=== PATIENT | male | born 1990 | race Caucasian/White ===

== ENCOUNTER 2020-02-23 09:08 | Emergency (ER) | payer MEDICAID ==
--- NOTE | 2020-02-23 10:43 | EDM.PDOC ---
ED HPI GENERAL MEDICAL PROBLEM - General Chief Complaint: Back Pain or Injury Stated Complaint: LOWER BACK AND LEG PAIN/TROUBLE WALKING Time Seen by Provider: 02/23/20 09:45 Source of Information: Reports: Patient History Limitations: Reports: No Limitations - History of Present Illness INITIAL COMMENTS - FREE TEXT/NARRATIVE: The patient presents with low back pain and leg numbness and weakness. He says he has a history of low back pain. He fell asleep in his recliner 3 days all night and when he woke up he had low back pain and he had numbness and weakness to both legs. He also had pain down both legs. His right leg has less numbness and weakness but his left leg still has numbness and weakness. He cannot stand because he has pain to the left leg, numbness and weakness. He has no bowel or bladder problems. He does say he has numbness to his groin and he has problems getting an erection. Onset: Sudden Duration: Day(s): (3) Location: Reports: Back, Lower Extremity, Left, Lower Extremity, Right Quality: Reports: Sharp Severity: Severe Improves with: Reports: None Worsens with: Reports: None Associated Symptoms: Denies: Chest Pain, Cough, Fever/Chills, Headaches, Nausea/Vomiting, Shortness of Breath Treatments LINE CLOSER: Reports: Other (see below) Other Treatments LINE CLOSER: elevation Bilateral Leg Pain Score (Numeric/FACES): 8 - Related Data Allergies Allergy/AdvReac Type Severity Reaction Status Date / Time No Known Allergies Allergy Verified 02/23/20 09:52 Home Meds: Home Meds . [No Known Home Meds] 02/23/20 [History] Past Medical History - Past Health History Medical/Surgical History: Denies Medical/Surgical History Neurological History: Reports: Neuropathy, Peripheral Social & Family History - Tobacco Use Smoking Status *Q: Current Every Day Smoker Years of Tobacco use: 16 Packs/Tins Daily: 0.2 Second Hand Smoke Exposure: No - Caffeine Use Caffeine Use: Reports: Energy Drinks, Soda, Tea - Recreational Drug Use Recreational Drug Use: Yes Recreational Drug Type: Reports: Marijuana/Hashish Recreational Drug Use Frequency: Daily ED ROS GENERAL - Review of Systems Review Of Systems: See Below Constitutional: Reports: No Symptoms HEENT: Reports: No Symptoms Respiratory: Reports: No Symptoms Cardiovascular: Reports: No Symptoms Endocrine: Reports: No Symptoms GI/Abdominal: Reports: No Symptoms : Reports: No Symptoms Musculoskeletal: Reports: Back Pain Neurological: Reports: Numbness (both legs), Weakness (both legs) ED EXAM,LOWER BACK PAIN/INJURY - Physical Exam Exam: See Below Exam Limited By: No Limitations General Appearance: Alert, No Apparent Distress Ears: Normal External Exam Nose: Normal Inspection Head: Atraumatic, Normocephalic Neck: Normal Inspection Respiratory/Chest: No Respiratory Distress, Lungs Clear, Normal Breath Sounds Cardiovascular: Regular Rate, Rhythm, No Edema, No Murmur GI/Abdominal: Soft, No Organomegaly, No Mass, Tender (Mild lower abdominal tenderness) Back Exam: Other (Pain upon palpation to the lower back) Neurological: Alert, Oriented x 3, Other (Gross numbess to both legs but more to the left leg. Moderate to severe weakness to the left leg.) Course - Vital Signs Last Recorded V/S: Last Vital Signs Temp 97.8 F 02/23/20 09:41 Pulse 60 02/23/20 09:41 Resp 18 02/23/20 09:41 BP 114/77 02/23/20 09:41 Pulse Ox 98 02/23/20 09:41 - Orders/Labs/Meds Orders: Active Orders 24 hr Category Date Time Status Peripheral IV Care [RC] . DIRECTED Care 02/23/20 13:12 Active Sodium Chloride 0.9% [Saline Flush] Med 02/23/20 13:12 Active 10 ml FLUSH ASDIRECTED PRN Peripheral IV Insertion Adult [OM.PC] Routine Oth 02/23/20 13:12 Ordered Medication Orders Sodium Chloride (Saline Flush) 10 ml FLUSH ASDIRECTED PRN PRN Reason: Keep Vein Open Last Admin: 02/23/20 13:30 Dose: 10 ml Documented by: FELICITY Meds: Medications Generic Name Dose Route Start Last Admin Trade Name Freq PRN Reason Stop Dose Admin Sodium Chloride 10 ml 02/23/20 13:12 02/23/20 13:30 Saline Flush FLUSH 10 ml ASDIRECTED PRN Administration Keep Vein Open Discontinued Medications Generic Name Dose Route Start Last Admin Trade Name Freq PRN Reason Stop Dose Admin Gadobenate Dimeglumine 20 ml 02/23/20 16:00 02/23/20 16:02 Multihance IVPUSH 02/23/20 16:01 20 ml ONETIME ONE Administration Sodium Chloride 10 ml 02/23/20 16:00 02/23/20 16:02 Saline Flush FLUSH 02/23/20 16:01 10 ml ONETIME ONE Administration - Re-Assessments/Exams Free Text/Narrative Re-Assessment/Exam: 02/23/20 10:43 I have ordered an MRI of his lumbar spine. 02/23/20 13:04 The MRI of his lumbar spine shows no abnormality identified on MRI study of the lumbar spine. I called [facility] [address] in [place] and talked with Dr Philippe the neurologist manager compensation and he recommended a MRI of the thoracic spine. I ordered that and it was normal. I called him back and I did more of an exam. He had some slight numbness to below the umbilicus with light touch. He had a positive babinski to the left. He had no 2 point discrimination to the left leg and that only started on the lower leg on the right side. I called Dr Philippe back and he said not all the exam findings are making sense. I agreed. He said he could see him in the clinic or in their ER today and it is hard to make that determination with the exam findings. I said I will have him follow up in the clinic and I will get him a walker and I have him seeing PT at [facility] tomorrow at 7am. Departure - Departure Time of Disposition: 17:00 Disposition: Home, Self-Care 01 Condition: Good Clinical Impression: Left leg numbness, Left leg weakness Low back pain Qualifiers: Chronicity: acute Back pain laterality: bilateral Sciatica presence: without sciatica Qualified Code(s): M54.5 - Low back pain - Discharge Information *PRESCRIPTION DRUG MONITORING PROGRAM REVIEWED*: Not Applicable *COPY OF PRESCRIPTION DRUG MONITORING REPORT IN PATIENT WILLIAM: Not Applicable Referrals: PCP,None [Primary Care Provider] - Jonathan Philippe MD [Ordering Only Provider] - 1 Week Nel Mckeon NP [Nurse Practitioner] - 1 Week Forms: ED Department Discharge, ED Return to Work/School Form Additional Instructions: Use the walker to get around. Take motrin or tylenol for any pain. Follow up with physical therapy tomorrow at 7am. The entrance for [facility] is at the other end of the building. Follow up with the neurologist Dr Philippe at [facility] in [place]. Call to make an appointment. Follow up with Nel Mckeon in our clinic on at 12:30. Come at 12 to register. Please return if you are worse. Sepsis Event Note (ED) - Evaluation Sepsis Screening Result: No Definite Risk - Focused Exam Vital Signs: Vital Signs Temp Pulse Resp BP Pulse Ox 02/23/20 09:41 97.8 F 60 18 114/77 98 - My Orders Last 24 Hours: My Active Orders 02/23/20 13:12 Peripheral IV Care [RC] . DIRECTED Sodium Chloride 0.9% [Saline Flush] 10 ml FLUSH ASDIRECTED PRN Peripheral IV Insertion Adult [OM.PC] Routine - Assessment/Plan Last 24 Hours: My Active Orders 02/23/20 13:12 Peripheral IV Care [RC] . DIRECTED Sodium Chloride 0.9% [Saline Flush] 10 ml FLUSH ASDIRECTED PRN Peripheral IV Insertion Adult [OM.PC] Routine
--- NOTE | 2020-02-23 12:37 | MR ---
MRI lumbar spine Technique: T1 and T2 axial images were obtained the top of the L1-2 disc through the L5-S1 discs. T1, T2 and fat suppressed inversion recovery sagittal images were obtained. Findings: Vertebral body heights and disc spaces are maintained. Posterior discs are preserved. No central canal stenosis or neural foraminal stenosis is seen. Conus medullaris and cauda equina shows no abnormal signal or mass. Impression: 1. No abnormality is identified on MRI study of the lumbar spine. Diagnostic code #1 This report was dictated in MDT
[2020-02-23] MEDS ORDERED: Sodium Chloride 0.9% 10 ML Syringe FLUSH PRN (13:12)
[2020-02-23] MEDS ORDERED: Sodium Chloride 0.9% 10 ML Syringe FLUSH ONE (16:00)
[2020-02-23] MEDS ORDERED: Gadobenate Dimeglumine 529 MG/ML 20 ML SDV IVPUSH ONE (16:00)
--- NOTE | 2020-02-23 16:37 | MR ---
MRI thoracic spine Technique: T1 and T2-weighted axial images were obtained contiguously from above the T7-8 disc inferiorly through the T10-11 disc. T2-weighted axial images at each disc interspace was also obtained. T1, T2 and fat suppressed inversion recovery sagittal images were obtained. Findings: Vertebral body heights and disc spaces are maintained. Posterior discs are preserved. No disc herniation is seen. No central canal stenosis or neural foraminal stenosis is seen. Thoracic cord shows no abnormal signal or mass. Impression: 1. No abnormality is appreciated on MRI study of the thoracic spine. Diagnostic code #1 This report was dictated in MDT
== END 2020-02-23 17:20 | disposition home or self-care (01) ==
LOC: JD.ED 09:08
DX: M54.5 Low back pain (principal); M62.81 Muscle weakness (generalized); R20.0 Anesthesia of skin; R10.30 Lower abdominal pain, unspecified; F17.210 Nicotine dependence, cigarettes, uncomplicated
CPT/HCPCS: 72148; 72157; 99284; A9577; 99283

== ENCOUNTER 2020-08-28 08:45 | Emergency (ER) | payer MEDICAID ==
[2020-08-28] MEDS ORDERED: Ondansetron 4 MG/2 ML SDV IVPUSH ONE (09:05)
[2020-08-28] MEDS ORDERED: Sodium Chloride 0.9% 1,000 ML IV STA (09:05)
[2020-08-28] MEDS ORDERED: Sodium Chloride 0.9% 10 ML Syringe FLUSH PRN (09:05)
[2020-08-28] MEDS ORDERED: HYDROmorphone 1 MG/ML Syringe IVPUSH ONE (09:06)
--- NOTE | 2020-08-28 09:10 | EDM.PDOC ---
ED HPI GENERAL MEDICAL PROBLEM - General Chief Complaint: Gastrointestinal Problem Stated Complaint: VOMITING BLOOD Time Seen by Provider: 08/28/20 08:58 Source of Information: Reports: Patient History Limitations: Reports: No Limitations - History of Present Illness INITIAL COMMENTS - FREE TEXT/NARRATIVE: The patient presents with abdominal pain, right flank pain, nausea and vomiting. He says for a few weeks this has been going on. This morning it started up again and it is worse. He said there is pain in his right flank. He also has generalized abdominal pain with severe nausea and vomiting. He has no diarrhea. He has no fever, chills, cough, congestion, runny nose, chest pain or shortness of breath. He has no dysuria. He still his appendix and gallbladder. He has no other medical problems. Onset: Gradual Duration: Week(s): Location: Reports: Abdomen, Back Quality: Reports: Sharp Severity: Severe Improves with: Reports: None Worsens with: Reports: None Associated Symptoms: Reports: Nausea/Vomiting. Denies: Chest Pain, Cough, Fever/Chills, Headaches, Shortness of Breath Chest Pain Score (Numeric/FACES): 10 - Related Data Allergies Allergy/AdvReac Type Severity Reaction Status Date / Time diphenhydramine Allergy Cannot Verified 08/28/20 09:03 [From Benadryl] Remember methylphenidate Allergy Cannot Verified 08/28/20 09:03 [From Ritalin] Remember Home Meds: Home Meds Hydrocodone/Acetaminophen [Hydrocodone-Acetamin 5-325 mg] 1 - 2 each PO Q6HR PRN #10 tablet 08/28/20 [Rx] Ondansetron [Zofran ODT] 4 mg PO Q6H PRN #20 tab.dis 08/28/20 [Rx] Pantoprazole Sodium [Protonix] 40 mg PO DAILY #14 tablet. 08/28/20 [Rx] Past Medical History - Past Health History Medical/Surgical History: Denies Medical/Surgical History Neurological History: Reports: Neuropathy, Peripheral Social & Family History - Caffeine Use Caffeine Use: Reports: Energy Drinks, Soda, Tea ED ROS GENERAL - Review of Systems Review Of Systems: See Below Constitutional: Reports: No Symptoms HEENT: Reports: No Symptoms Respiratory: Reports: No Symptoms Cardiovascular: Reports: No Symptoms Endocrine: Reports: No Symptoms GI/Abdominal: Reports: Abdominal Pain, Nausea, Vomiting. Denies: Diarrhea : Reports: Flank Pain (right) Musculoskeletal: Reports: Back Pain ED EXAM, GI/ABD - Physical Exam Exam: See Below Exam Limited By: No Limitations General Appearance: Alert, Mild Distress Ears: Normal External Exam Nose: Normal Inspection Head: Atraumatic, Normocephalic Neck: Normal Inspection Respiratory/Chest: No Respiratory Distress, Lungs Clear, Normal Breath Sounds Cardiovascular: Regular Rate, Rhythm, No Edema, No Murmur GI/Abdominal Exam: Soft, No Organomegaly, No Mass, Tender (Generalized severe tenderness) Back Exam: CVA Tenderness (R) Course - Vital Signs Last Recorded V/S: Last Vital Signs Temp 96.9 F 08/28/20 09:04 Pulse 92 08/28/20 09:04 Resp 16 08/28/20 09:04 BP 154/88 H 08/28/20 09:04 Pulse Ox 100 08/28/20 09:04 - Orders/Labs/Meds Orders: Active Orders 24 hr Category Date Time Status Peripheral IV Care [RC] . DIRECTED Care 08/28/20 09:05 Active Sodium Chloride 0.9% [Saline Flush] Med 08/28/20 09:05 Active 10 ml FLUSH ASDIRECTED PRN ED Antiemetic Medication Reflex [OM.PC] Stat Oth 08/28/20 09:05 Ordered Peripheral IV Insertion Adult [OM.PC] Stat Oth 08/28/20 09:05 Ordered Medication Orders Sodium Chloride (Saline Flush) 10 ml FLUSH ASDIRECTED PRN PRN Reason: Keep Vein Open Last Admin: 08/28/20 09:17 Dose: 10 ml Documented by: REENA Labs: Laboratory Tests 08/28/20 08/28/20 Range/Units 09:20 09:20 WBC 11.74 H (4.23-9.07) K/mm3 RBC 6.01 (4.63-6.08) M/mm3 Hgb 17.1 (13.7-17.5) gm/dl Hct 50.3 (40.1-51.0) % MCV 83.7 (79.0-92.2) fl MCH 28.5 (25.7-32.2) pg MCHC 34.0 (32.2-35.5) g/dl RDW Std Deviation 40.2 (35.1-43.9) fL Plt Count 306 (163-337) K/mm3 MPV 9.0 L (9.4-12.3) fl Neut % (Auto) 70.1 H (34.0-67.9) % Lymph % (Auto) 19.5 L (21.8-53.1) % Sutton % (Auto) 7.3 (5.3-12.2) % Eos % (Auto) 2.7 (0.8-7.0) Baso % (Auto) 0.2 (0.1-1.2) % Neut # (Auto) 8.23 H (1.78-5.38) K/mm3 Lymph # (Auto) 2.29 (1.32-3.57) K/mm3 Sutton # (Auto) 0.86 H (0.30-0.82) K/mm3 Eos # (Auto) 0.32 (0.04-0.54) K/mm3 Baso # (Auto) 0.02 (0.01-0.08) K/mm3 Manual Slide Review Abnormal smear Sodium 144 (136-145) mEq/L Potassium 3.9 (3.5-5.1) mEq/L Chloride 108 H (98-107) mEq/L Carbon Dioxide 26 (21-32) mEq/L Anion Gap 13.9 (5-15) BUN 15 (7-18) mg/dL Creatinine 1.1 (0.7-1.3) mg/dL Est Cr Clr Drug Dosing 114.17 mL/min Estimated GFR (MDRD) > 60 (>60) mL/min BUN/Creatinine Ratio 13.6 L (14-18) Glucose 117 H (74-106) mg/dL Calcium 8.9 (8.5-10.1) mg/dL Total Bilirubin 0.3 (0.2-1.0) mg/dL AST 12 L (15-37) U/L ALT 26 (16-63) U/L Alkaline Phosphatase 75 (46-116) U/L Total Protein 7.5 (6.4-8.2) g/dl Albumin 4.1 (3.4-5.0) g/dl Globulin 3.4 gm/dL Albumin/Globulin Ratio 1.2 (1-2) Lipase 170 (73-393) U/L Meds: Medications Generic Name Dose Route Start Last Admin Trade Name Teodoro PRN Reason Stop Dose Admin Sodium Chloride 10 ml 08/28/20 09:05 08/28/20 09:17 Saline Flush FLUSH 10 ml ASDIRECTED PRN Administration Keep Vein Open Discontinued Medications Generic Name Dose Route Start Last Admin Trade Name Teodoro PRN Reason Stop Dose Admin Hydromorphone HCl 1 mg 08/28/20 09:06 08/28/20 09:17 Dilaudid IVPUSH 08/28/20 09:07 1 mg ONETIME ONE Administration Sodium Chloride 1,000 mls @ 1,000 mls/hr 08/28/20 09:05 08/28/20 09:17 Normal Saline IV 08/28/20 10:04 1,000 mls/hr .BOLUS STA Administration Ondansetron HCl 4 mg 08/28/20 09:05 08/28/20 09:17 Zofran IVPUSH 08/28/20 09:06 4 mg ONETIME ONE Administration - Re-Assessments/Exams Free Text/Narrative Re-Assessment/Exam: 08/28/20 09:09 I ordered an IV NS 1L bolus, zofran 4mg IV, dilaudid 1mg IV, labs, UA and a CT of his abdomen and pelvis with IV and oral contrast. 08/28/20 10:37 The patient was very rude to my nurses when they were getting an IV and they gave him the meds and pulled the IV out because he did not want it in. He feels better now. His WBC was slightly elevated at 11.74. His CMP looks good. His lipase was normal. The CT of his abdomen and pelvis shows distal visualized esophagus shows wall thickening. Wall thickening also appears to be present within a portion of the stomach. Findings suspicious for possible gastritis and reflux esophagitis. Please correlate with the patient's symptoms. No renal calculi, urethral dilatation or ureteral stone is seen. No other acute abnormality is identified. He feels much better. I will get him on protonix, zofran and something for pain. Departure - Departure Time of Disposition: 10:45 Disposition: Home, Self-Care 01 Condition: Good Clinical Impression: Gastritis Qualifiers: Gastritis type: unspecified gastritis Chronicity: acute Gastritis bleeding: without bleeding Qualified Code(s): K29.00 - Acute gastritis without bleeding Reflux esophagitis Qualifiers: Esophagitis bleeding: without hemorrhage Qualified Code(s): K21.00 - Gastro- esophageal reflux disease with esophagitis, without bleeding - Discharge Information *PRESCRIPTION DRUG MONITORING PROGRAM REVIEWED*: No *COPY OF PRESCRIPTION DRUG MONITORING REPORT IN PATIENT WILLIAM: No Prescriptions: Hydrocodone/Acetaminophen [Hydrocodone-Acetamin 5-325 mg] 1 - 2 each PO Q6HR PRN #10 tablet PRN Reason: Pain Pantoprazole Sodium [Protonix] 40 mg PO DAILY #14 tablet. Ondansetron [Zofran ODT] 4 mg PO Q6H PRN #20 tab.dis PRN Reason: Nausea\vomiting Referrals: PCP,None [Primary Care Provider] - Aiden Jones PA-C [Physician Family Program Specialist] - 2 Weeks Forms: ED Department Discharge Additional Instructions: Take the protonix daily for 2 weeks. Take the zofran as needed for nausea and vomiting. Take the hydrocodone as needed for pain. Try to avoid spicy foods. Please return if you are worse. Follow up with Aiden Jones in the clinic within 2 weeks. Sepsis Event Note (ED) - Focused Exam Vital Signs: Vital Signs Temp Pulse Resp BP Pulse Ox 08/28/20 09:04 96.9 F 92 16 154/88 H 100 - My Orders Last 24 Hours: My Active Orders 08/28/20 09:05 Peripheral IV Care [RC] . DIRECTED Sodium Chloride 0.9% [Saline Flush] 10 ml FLUSH ASDIRECTED PRN ED Antiemetic Medication Reflex [OM.PC] Stat Peripheral IV Insertion Adult [OM.PC] Stat - Assessment/Plan Last 24 Hours: My Active Orders 08/28/20 09:05 Peripheral IV Care [RC] . DIRECTED Sodium Chloride 0.9% [Saline Flush] 10 ml FLUSH ASDIRECTED PRN ED Antiemetic Medication Reflex [OM.PC] Stat Peripheral IV Insertion Adult [OM.PC] Stat
--- NOTE | 2020-08-28 10:11 | CT ---
CT abdomen and pelvis Technique: Multiple axial sections were obtained from above the dome of the diaphragm inferiorly through the pubic symphysis. Intravenous and oral contrast was not utilized. Study has been performed as a ureteral stone protocol. Reconstructed coronal and sagittal images were obtained. Findings: Kidneys show no abnormal calcifications. No ureteral dilatation or ureteral stone is seen. Visualized lung bases show nothing acute. Noncontrast appearance of the liver and spleen show no discrete abnormality. There is wall thickening within the distal esophagus suspicious for gastroesophageal reflux. Adrenal glands show no nodule. Pancreas shows no discrete abnormality. Aorta shows no aneurysm. Stomach wall is slightly thickened possibly due to gastritis. No retroperitoneal adenopathy or mesenteric abnormalities are seen. Appendix is seen which is normal in size. No pelvic mass or adenopathy is appreciated. Bowel gas pattern appears within normal limits. Bone window settings were reviewed. No acute osseous abnormality is identified. Impression: 1. Distal visualized esophagus shows wall thickening. Wall thickening also appears to be present within a portion of the stomach. Findings are suspicious for possible gastritis and reflux esophagitis. Please correlate with the patient's symptoms. 2. No renal calculi, ureteral dilatation or ureteral stone is seen. 3. No other acute abnormality is identified. Diagnostic code #3
== END 2020-08-28 10:58 | disposition home or self-care (01) ==
LOC: JD.ED 08:45
DX: K29.00 Acute gastritis without bleeding (principal); K21.00 Gastro-esophageal reflux disease with esophagitis, without bleeding; G62.9 Polyneuropathy, unspecified; Z79.899 Other long term (current) drug therapy; Z88.8 Allergy status to other drugs, medicaments and biological substances
CPT/HCPCS: 36415; 74176; 80053; 83690; 85025; 96374; 96375; 99284; J1170; J2405; J7030

== ENCOUNTER 2020-09-01 03:19 | Emergency (ER) | payer MEDICAID ==
--- NOTE | 2020-09-01 03:46 | EDM.PDOC ---
ED HPI GENERAL MEDICAL PROBLEM - General Chief Complaint: Upper Extremity Injury/Pain Stated Complaint: wrist swelling Time Seen by Provider: 09/01/20 03:22 Source of Information: Reports: Patient History Limitations: Reports: No Limitations - History of Present Illness INITIAL COMMENTS - FREE TEXT/NARRATIVE: The patient presents with right wrist pain and swelling. He was here 3 days ago for gastritis. One of our nurses attempted an IV in his right wrist. She had some trouble and the patient got upset with her. She stopped and another nurse put the IV in his AC and that worked fine but he wanted the IV out after getting medications. He now has ecchymosis to the right wrist with numbness and pain. He uses his hands a lot and he is upset. Onset: Sudden Duration: Day(s): (3) Location: Reports: Upper Extremity, Right (wrist) Quality: Reports: Sharp Severity: Severe Improves with: Reports: Immobilization Worsens with: Reports: Movement Context: Reports: Trauma (IV start) Associated Symptoms: Reports: No Other Symptoms - Related Data Allergies Allergy/AdvReac Type Severity Reaction Status Date / Time diphenhydramine Allergy Cannot Verified 09/01/20 03:25 [From Benadryl] Remember methylphenidate Allergy Cannot Verified 09/01/20 03:25 [From Ritalin] Remember Home Meds: Home Meds Ondansetron [Zofran ODT] 4 mg PO Q6H PRN #20 tab.dis 08/28/20 [Rx] Pantoprazole Sodium [Protonix] 40 mg PO DAILY #14 tablet. 08/28/20 [Rx] Past Medical History - Past Health History Medical/Surgical History: Denies Medical/Surgical History Gastrointestinal History: Reports: GERD Neurological History: Reports: Neuropathy, Peripheral Social & Family History - Tobacco Use Tobacco Use Status *Q: Unknown Ever Used Tobacco - Caffeine Use Caffeine Use: Reports: Energy Drinks, Soda, Tea Review of Systems - Review of Systems Review Of Systems: See Below Constitutional: Reports: No Symptoms Eyes: Reports: No Symptoms Ears: Reports: No Symptoms Nose: Reports: No Symptoms Mouth/Throat: Reports: No Symptoms Respiratory: Reports: No Symptoms Cardiovascular: Reports: No Symptoms GI/Abdominal: Reports: No Symptoms Genitourinary: Reports: No Symptoms Musculoskeletal: Reports: Other (right wrist swelling and pain) ED EXAM, GENERAL - Physical Exam Exam: See Below Exam Limited By: No Limitations General Appearance: Alert, No Apparent Distress Ears: Normal External Exam Nose: Normal Inspection Head: Atraumatic, Normocephalic Neck: Normal Inspection Respiratory/Chest: No Respiratory Distress Extremities: Other (right wrist has a puncture wound to the dorsal radial side with ecchymosis and mild edema. Range of motion is limited due to pain. Decreased sensation to his hand.) Course - Vital Signs Last Recorded V/S: Last Vital Signs Temp 97.5 F 09/01/20 03:26 Pulse 59 L 09/01/20 03:26 Resp 15 09/01/20 03:26 BP 124/74 09/01/20 03:26 Pulse Ox 98 09/01/20 03:26 - Re-Assessments/Exams Free Text/Narrative Re-Assessment/Exam: 09/01/20 03:46 I will get him a thumb spica splint and have him follow up with PT. Departure - Departure Time of Disposition: 03:40 Disposition: Home, Self-Care 01 Condition: Good Clinical Impression: Traumatic ecchymosis of right wrist Qualifiers: Encounter type: initial encounter Qualified Code(s): S60.211A - Contusion of right wrist, initial encounter - Discharge Information *PRESCRIPTION DRUG MONITORING PROGRAM REVIEWED*: Not Applicable *COPY OF PRESCRIPTION DRUG MONITORING REPORT IN PATIENT WILLIAM: Not Applicable Referrals: PCP,None [Primary Care Provider] - Rayshawn Madrid MD [Physician] - 1 Week Additional Instructions: Wear the splint for comfort. Take tylenol or motrin for pain. Try ice or heat, which ever one feels better. Follow up with physical therapy. Please return if you are worse. If you do not improve within a week, follow up with Dr Madrid. He is an orthopedic surgeon in [employer]. Sepsis Event Note (ED) - Evaluation Sepsis Screening Result: No Definite Risk - Focused Exam Vital Signs: Vital Signs Temp Pulse Resp BP Pulse Ox 09/01/20 03:26 97.5 F 59 L 15 124/74 98
== END 2020-09-01 04:00 | disposition home or self-care (01) ==
LOC: JD.ED 03:19
DX: S60.211A Contusion of right wrist, initial encounter (principal); Z88.8 Allergy status to other drugs, medicaments and biological substances; X58.XXXA Exposure to other specified factors, initial encounter
CPT/HCPCS: 29125; 99282; 99283-25

== ENCOUNTER 2020-12-12 17:37 | Emergency (ER) | payer MEDICAID ==
--- NOTE | 2020-12-12 18:27 | EDM.PDOC ---
ED HPI GENERAL MEDICAL PROBLEM - General Chief Complaint: Abdominal Pain Stated Complaint: HERNIA Time Seen by Provider: 12/12/20 17:45 Source of Information: Reports: Patient History Limitations: Reports: No Limitations - History of Present Illness INITIAL COMMENTS - FREE TEXT/NARRATIVE: 30-year-old male presents to the emergency department complaints of inguinal hernia pain. The patient states he saw a surgeon at [facility], , for an inguinal hernia on November 17, 2020. Patient reports at that time Dr. Nina Becerra wanted to schedule surgery for hernia repair however the patient had a lot of anxiety regarding surgery and did not want to go through with it at that time. The patient was given strict follow-up instructions that should he develop lower abdominal pain or if the hernia got more firm, such as as firm as his elbow, that he was supposed to return to the emergency department. The patient states that over the weekend he was moving his apartment and lifting a lot of heavy furniture. He states that the pain has gotten significantly worse to his right lower abdomen and that the hernia is significantly more hardened. He denies taking any pain medications to ease up the pain however he does state he smokes marijuana to relieve the pain. Right Groin Pain Score (Numeric/FACES): 6 - Related Data Allergies Allergy/AdvReac Type Severity Reaction Status Date / Time diphenhydramine Allergy Cannot Verified 12/12/20 17:47 [From Benadryl] Remember methylphenidate Allergy Cannot Verified 12/12/20 17:47 [From Ritalin] Remember Home Meds: Home Meds Pantoprazole Sodium [Protonix] 40 mg PO DAILY #14 tablet. 08/28/20 [Rx] Past Medical History - Past Health History Medical/Surgical History: Denies Medical/Surgical History HEENT History: Reports: Other (See Below) Other HEENT History: glasses Respiratory History: Reports: Asthma Gastrointestinal History: Reports: GERD Genitourinary History: Reports: Other (See Below) Other Genitourinary History: hernia Musculoskeletal History: Reports: Other (See Below) Neurological History: Reports: Neuropathy, Peripheral, Other (See Below) Other Neuro History: TBI Psychiatric History: Reports: Autism - Infectious Disease History Infectious Disease History: Reports: Novel Coronavirus Social & Family History - Tobacco Use Tobacco Use Status *Q: Former Tobacco User Used Tobacco, but Quit: Yes Month/Year Tobacco Last Used: 11/2020 - Caffeine Use Caffeine Use: Reports: Coffee, Energy Drinks, Tea - Recreational Drug Use Recreational Drug Use: Yes Recreational Drug Type: Reports: Marijuana/Hashish Recreational Drug Use Frequency: Socially ED ROS GENERAL - Review of Systems Review Of Systems: Comprehensive ROS is negative, except as noted in HPI. ED EXAM, RENAL/ - Physical Exam Exam: See Below Exam Limited By: No Limitations General Appearance: Alert, WD/WN, No Apparent Distress Ears: Normal External Exam, Hearing Grossly Normal Nose: Normal Inspection Throat/Mouth: Normal Inspection, Normal Lips, Normal Voice, No Airway Compromise Head: Atraumatic Neck: Normal Inspection, Supple Respiratory/Chest: No Respiratory Distress, Lungs Clear, No Accessory Muscle Use Cardiovascular: Normal Peripheral Pulses, Regular Rate, Rhythm GI/Abdominal: Normal Bowel Sounds, No Distention, No Mass (Right inguinal hernia noted to right lower quadrant), Rigid (Right lower quadrant), Tender (Right lower quadrant), Hernia (Right lower quadrant) (Male) Exam: Hernia (Right lower quadrant) Rectal (Males) Exam: Deferred Back Exam: Normal Inspection Extremities: Normal Inspection Neurological: Alert, Oriented, Normal Cognition Psychiatric: Normal Affect, Normal Mood Skin Exam: Warm, Dry, Intact, Normal Color, No Rash Lymphatic: No Adenopathy Course - Vital Signs Text/Narrative:: Patient presents with significantly worse right lower quadrant abdominal pain and hardening of inguinal hernia after moving furniture recently. He states he was seen by Dr.Waitera at [facility] for initial evaluation of his hernia on November 17, 2020. At that time it was recommended the patient have surgery however he elected not to go. He was given strict return precautions such as worsening pain or firmness of the hernia. Patient states that his symptoms have worsened. I have ordered labs and a CT of the abdomen and pelvis. Last Recorded V/S: Last Vital Signs Temp 96.5 F L 12/12/20 17:46 Pulse 63 12/12/20 17:46 Resp 20 12/12/20 17:46 BP 128/78 12/12/20 17:46 Pulse Ox 95 12/12/20 17:46 - Orders/Labs/Meds Labs: Laboratory Tests 12/12/20 12/12/20 12/12/20 Range/Units 18:30 18:30 18:30 WBC 5.75 (4.23-9.07) K/mm3 RBC 6.01 (4.63-6.08) M/mm3 Hgb 17.1 (13.7-17.5) gm/dl Hct 49.6 (40.1-51.0) % MCV 82.5 (79.0-92.2) fl MCH 28.5 (25.7-32.2) pg MCHC 34.5 (32.2-35.5) g/dl RDW Std Deviation 39.5 (35.1-43.9) fL Plt Count 271 (163-337) K/mm3 MPV 8.8 L (9.4-12.3) fl Neut % (Auto) 67.3 (34.0-67.9) % Lymph % (Auto) 15.5 L (21.8-53.1) % Mccone % (Auto) 15.5 H (5.3-12.2) % Eos % (Auto) 1.2 (0.8-7.0) Baso % (Auto) 0.2 (0.1-1.2) % Neut # (Auto) 3.87 (1.78-5.38) K/mm3 Lymph # (Auto) 0.89 L (1.32-3.57) K/mm3 Mccone # (Auto) 0.89 H (0.30-0.82) K/mm3 Eos # (Auto) 0.07 (0.04-0.54) K/mm3 Baso # (Auto) 0.01 (0.01-0.08) K/mm3 Manual Slide Review Abnormal smear PT 11.0 (9.7-12.0) SECONDS INR 1.03 APTT 27.6 (21.7-31.4) SECONDS Sodium 141 (136-145) mEq/L Potassium 3.8 (3.5-5.1) mEq/L Chloride 103 (98-107) mEq/L Carbon Dioxide 28 (21-32) mEq/L Anion Gap 13.8 (5-15) BUN 12 (7-18) mg/dL Creatinine 1.1 (0.7-1.3) mg/dL Est Cr Clr Drug Dosing 114.17 mL/min Estimated GFR (MDRD) > 60 (>60) mL/min BUN/Creatinine Ratio 10.9 L (14-18) Glucose 98 (74-106) mg/dL Calcium 9.5 (8.5-10.1) mg/dL Total Bilirubin 0.9 (0.2-1.0) mg/dL AST 22 (15-37) U/L ALT 57 (16-63) U/L Alkaline Phosphatase 96 (46-116) U/L Total Protein 8.3 H (6.4-8.2) g/dl Albumin 4.5 (3.4-5.0) g/dl Globulin 3.8 gm/dL Albumin/Globulin Ratio 1.2 (1-2) Meds: Medications Discontinued Medications Generic Name Dose Route Start Last Admin Trade Name Freq PRN Reason Stop Dose Admin Hydromorphone HCl 0.5 mg 12/12/20 18:31 12/12/20 18:44 Hydromorphone 0.5 Mg/0.5 Ml Syringe IVPUSH 12/12/20 18:32 0.5 mg ONETIME ONE Administration Iopamidol 100 ml 12/12/20 19:04 12/12/20 19:04 Iopamidol 612 Mg/Ml 100 Ml Bottle IVPUSH 12/12/20 19:05 100 ml ONETIME ONE Administration - Re-Assessments/Exams Free Text/Narrative Re-Assessment/Exam: 12/12/20 19:32 Hematology is essentially unremarkable, coagulation is unremarkable as well as chemistries. Radiologist impression CT of the abdomen and pelvis: 1. Small partial fat- containing right inguinal hernia. 2. Mild diverticulosis within the sigmoid colon without inflammatory change of diverticulitis. 3. No additional abnormality is appreciated on CT study of the abdomen and pelvis. I did speak with Dr. Wright, the surgeon on-call and he states that there is no emergent surgery warranted at this time. The patient will be discharged to home with recommendations that he follow-up with this week. Departure - Departure Time of Disposition: 19:33 Disposition: Home, Self-Care 01 Condition: Good Clinical Impression: Inguinal hernia Qualifiers: Obstruction and gangrene presence: without obstruction or gangrene Laterality: unilateral Recurrence: recurrent Qualified Code(s): K40.91 - Unilateral inguinal hernia, without obstruction or gangrene, recurrent - Discharge Information Instructions: Inguinal Hernia, Adult, [id number] Referrals: PCP,None [Primary Care Provider] - Forms: ED Department Discharge Additional Instructions: You were seen in the emergency department today with worsening pain associated with right inguinal hernia. You state that you are directed to report to the emergency department should your pain worsen or the inguinal hernia hard. Labs and a CT scan were completed today and these did not show any worsening of your hernia and your lab work was unremarkable. I spoke with the surgeon on-call, Allison Wright, and he states that there is no urgent surgery warranted at this time. You will be discharged home with recommendations that you follow-up with Dr. Mayes this week for follow-up. I have given you a prescription for Percocet. This is a narcotic medication. You can take 1 tab every 6 hours as needed for more severe pain. Just remember that this is a narcotic medication and you cannot drive or operate heavy machinery while taking this. Also if you are taking a significant amount of this, it will cause you to be constipated. Should your condition worsen or change, do not hesitate returning the emergency department. Sepsis Event Note (ED) - Evaluation Sepsis Screening Result: No Definite Risk - Focused Exam Vital Signs: Vital Signs Temp Pulse Resp BP Pulse Ox 12/12/20 17:46 96.5 F L 63 20 128/78 95
[2020-12-12] MEDS ORDERED: HYDROmorphone 0.5 MG/0.5 ML Syringe IVPUSH ONE (18:31)
[2020-12-12] MEDS ORDERED: Iopamidol 612 MG/ML 100 ML Bottle IVPUSH ONE (19:04)
--- NOTE | 2020-12-12 19:19 | CT ---
CT abdomen and pelvis Technique: Multiple axial sections were obtained from above the dome of the diaphragm inferiorly through the pubic symphysis. Intravenous contrast was utilized. No oral contrast has been given. Delayed images were obtained through the bladder. Reconstructed coronal and sagittal images were also obtained. Comparison: Prior CT abdomen and pelvis study of 08/28/20. Findings: Visualized lung bases show nothing acute. Liver shows no focal parenchymal abnormality. Spleen is within normal limits. Adrenal glands show no nodule. Pancreas shows no discrete abnormality. Gallbladder contains no calcified gallstones. Kidneys show symmetric contrast enhancement without hydronephrosis or mass. Abdominal aorta shows no aneurysm. No retroperitoneal adenopathy or mesenteric abnormalities are seen. No pelvic mass or adenopathy is seen. Mild diverticulosis is seen with no inflammatory change seen to indicate diverticulitis within the sigmoid colon. Appendix is seen which is normal in size. Small partial fat containing inguinal hernia is noted. Delayed images show contrast within the distal ureters and within the bladder. Impression: 1. Small partial fat containing right inguinal hernia. 2. Mild diverticulosis within the sigmoid colon without inflammatory change of diverticulitis. 3. No additional abnormality is appreciated on CT study of the abdomen and pelvis. Diagnostic code #2
== END 2020-12-12 19:55 | disposition home or self-care (01) ==
LOC: JD.ED 17:37
DX: K40.91 Unilateral inguinal hernia, without obstruction or gangrene, recurrent (principal); K21.9 Gastro-esophageal reflux disease without esophagitis; Z88.6 Allergy status to analgesic agent; Z79.899 Other long term (current) drug therapy; Z87.891 Personal history of nicotine dependence
CPT/HCPCS: 36415; 74177; 80053; 85025; 85610; 85730; 96374; 99284; J1170; Q9967; 99283

== ENCOUNTER 2021-06-23 06:47 | Emergency (ER) | payer SELFPAY ==
[2021-06-23] MEDS ORDERED: Penicillin V Potassium 500 MG Tab PO STA (08:01)
--- NOTE | 2021-06-23 08:07 | EDM.PDOC ---
ED HPI GENERAL MEDICAL PROBLEM - General Chief Complaint: ENT Problem Stated Complaint: TOOTH ABCESS Time Seen by Provider: 06/23/21 07:36 Source of Information: Reports: Patient, Significant Other (Fianc) History Limitations: Reports: No Limitations - History of Present Illness INITIAL COMMENTS - FREE TEXT/NARRATIVE: Mr. Nash is a very pleasant 31-year-old gentleman who now presents to the ED stating that he has had an upper left tooth ache for the past 2 months, and he would like us to x-ray his face. He states that when he pushes on his left upper cheek, he feels pain extending from his eye down into his tooth. No recent fever or oral drainage. He also reports that something heavy dropped onto his right foot yesterday, and he is having pain to the dorsal aspect. He is concerned that his foot is broken. The patient has not taken any [id number] or home remedies to address his symptoms over the past 2 months. He has not seen a dentist, but states that he plans to see one soon. Here in the ED today, the patient is found to be hemodynamically stable, afebrile, saturating 99% on room air. He appears to be comfortable, in no acute distress. Other than the dental and foot issue, the patient denies having a recent fever, chills, sore throat, ear pain, nasal or sinus congestion, cough, dyspnea, chest pain, palpitations, nausea, vomiting, constipation, diarrhea, abdominal pain, urinary symptoms, recent weight gain or weight loss, recent bloody bowel movements or black bowel movements, recent joint aches, headaches, or rashes. The patient does not have a PCP. He has not received a COVID vaccination, nor an influenza vaccination this season. - Related Data Allergies Allergy/AdvReac Type Severity Reaction Status Date / Time diphenhydramine Allergy Cannot Verified 06/23/21 07:42 [From Benadryl] Remember methylphenidate Allergy Cannot Verified 06/23/21 07:42 [From Ritalin] Remember Home Meds: Home Meds Pantoprazole Sodium [Protonix] 40 mg PO DAILY #14 tablet. 08/28/20 [Rx] Penicillin V Potassium 500 mg PO Q6HR #40 tab 06/23/21 [Rx] Past Medical History HEENT History: Reports: Impaired Vision (wears glasses) Neurological History: Reports: Head Trauma Psychiatric History: Reports: Anxiety (untreated), Bipolar (untreated), Depression (untreated), Psychosis (untreated) - Infectious Disease History Infectious Disease History: Reports: Novel Coronavirus - Past Surgical History GI Surgical History: Reports: Hernia, Inguinal (bilateral) Social & Family History - Tobacco Use Tobacco Use Status *Q: Former Tobacco User Years of Tobacco use: 18 Packs/Tins Daily: 0.5 Month/Year Tobacco Last Used: Quit February 2021 Tobacco Use Comment: Started smoking 2002 - Caffeine Use Caffeine Use: Reports: Coffee, Energy Drinks, Tea - Alcohol Use Alcohol Use History: No - Recreational Drug Use Recreational Drug Use: Yes Drug Use in Last 12 Months: Yes Recreational Drug Type: Reports: Marijuana/Hashish (smokes daily) - Living Situation & Occupation Living situation: Reports: , with Significant Other (Fianc) Occupation: Unemployed ED ROS ENT - Review of Systems Review Of Systems: Comprehensive ROS is negative, except as noted in HPI. ED EXAM, ENT - Physical Exam Exam: See Below Exam Limited By: No Limitations General Appearance: Alert, WD/WN, No Apparent Distress Eye Exam: Bilateral Eye: EOMI Ears: Normal External Exam, Normal Canal, Hearing Grossly Normal, Normal TMs Nose: No Blood, Other (Left-sided nasal mucosal congestion) Mouth/Throat: Normal Gums (no swelling or pointing), Normal Lips, Normal Oropharynx, Other (Tooth #16 with approximately 40% of the posterolateral tooth fractured off/decayed) Head: Atraumatic, Normocephalic. No: Facial Swelling Neck: Normal Inspection, Supple, Non-Tender, Full Range of Motion. No: Lymphadenopathy (L), Lymphadenopathy (R) Extremities: Other (Erythematous line on the dorsal aspect of the foot, with tenderness to the dorsal aspect of the foot, primarily, less so on the plantar aspect. No associated swelling or ecchymosis. Neurovascular status of the right lower extremity is intact.) Course - Vital Signs Last Recorded V/S: Last Vital Signs Temp 36.6 C 06/23/21 07:38 Pulse 71 06/23/21 07:38 Resp 16 06/23/21 07:38 BP 132/89 06/23/21 07:38 Pulse Ox 97 06/23/21 07:38 - Orders/Labs/Meds Orders: Active Orders 24 hr Category Date Time Status Foot Comp Min 3V Rt [CR] Stat Exams 06/23/21 08:00 Taken Meds: Medications Discontinued Medications Generic Name Dose Route Start Last Admin Trade Name Teodoro PRN Reason Stop Dose Admin Penicillin V Potassium 500 mg 06/23/21 08:01 06/23/21 08:09 Penicillin V Potassium 500 Mg Tab PO 06/23/21 08:02 500 mg ONETIME STA Administration - Re-Assessments/Exams Free Text/Narrative Re-Assessment/Exam: 06/23/21 08:00 I have ordered x-rays of the right foot, and the patient will be started on oral penicillin. 06/23/21 08:22 4-view radiographs of the right foot appear to be grossly normal, with no fracture or dislocation identified. Formal read per the Radiologist pending. 06/23/21 08:29 X-ray results discussed with the patient. I recommended that he take [id number] Tylenol or ibuprofen as needed for discomfort. He will be discharged home with a prescription for PCN. He already intends to follow-up at [facility] dentistry. I will also refer him to [facility] to establish psychiatric care, per his request. Departure - Departure Time of Disposition: 08:30 Disposition: Home, Self-Care 01 Condition: Good Clinical Impression: Fractured tooth, Contusion of right foot - Discharge Information *PRESCRIPTION DRUG MONITORING PROGRAM REVIEWED*: Not Applicable *COPY OF PRESCRIPTION DRUG MONITORING REPORT IN PATIENT WILLIAM: Not Applicable Prescriptions: Penicillin V Potassium 500 mg PO Q6HR #40 tab Referrals: PCP,None [Primary Care Provider] - Forms: ED Department Discharge Additional Instructions: You were seen in the emergency room for an upper left tooth ache for the past 2 months, as well as for pain to your right foot after something heavy dropped on it yesterday. Work-up in the ER included x-rays of your right foot, which returned normal. No broken bones or dislocations were seen. On examination, about 40% of your upper left third molar is missing, with some decay of the tooth. No obvious infection was seen. You have been started on the antibiotic penicillin, and a prescription for penicillin has been provided to you. Please take 1 tablet of penicillin every 6 hours, as prescribed. Finish the entire prescription unless told otherwise by a dentist. You may take [id number] Tylenol or ibuprofen as needed for discomfort. Please follow-up with [facility] at the next available appointment. To establish psychiatric care, you may follow-up at [facility]: [address] [phone] If any other problems, please do not hesitate to return to the ER. Sepsis Event Note (ED) - Evaluation Sepsis Screening Result: No Definite Risk - Focused Exam Vital Signs: Vital Signs Temp Pulse Resp BP Pulse Ox 06/23/21 07:38 36.6 C 71 16 132/89 97 - My Orders Last 24 Hours: My Active Orders 06/23/21 08:00 Foot Comp Min 3V Rt [CR] Stat - Assessment/Plan Last 24 Hours: My Active Orders 06/23/21 08:00 Foot Comp Min 3V Rt [CR] Stat
--- NOTE | 2021-06-23 09:45 | CR ---
Right foot: 4 views of the right foot were obtained. Comparison: No prior foot study is available. Joint spaces are preserved. No fracture, dislocation or other bony abnormality is seen. Impression: 1. No abnormality is appreciated on right foot exam. Diagnostic code #1
== END 2021-06-23 09:10 | disposition home or self-care (01) ==
LOC: JD.ED 06:47
DX: S90.31XA Contusion of right foot, initial encounter (principal); K03.81 Cracked tooth; Z87.891 Personal history of nicotine dependence; Z88.8 Allergy status to other drugs, medicaments and biological substances; Z86.16 Personal history of COVID-19; W20.8XXA Other cause of strike by thrown, projected or falling object, initial encounter
CPT/HCPCS: 73630; 99283; A9270